=== PATIENT | male | born 1980 | race Caucasian/White ===

== ENCOUNTER 2022-08-04 13:14 | Emergency (ER) | payer BC, MEDICAID, OTHER ==
[2022-08-04 13:30] VITALS: BP 119/83; PULSE 85
[2022-08-04] MEDS ORDERED: Acetaminophen/HYDROcodone 325-10 MG Tab PO ONE (13:54)
[2022-08-04] MEDS ORDERED: Clindamycin HCl 150 MG Cap PO ONE (13:54)
== END 2022-08-04 14:10 | disposition home or self-care (01) ==
LOC: KA.ED 13:14
DX: K02.9 Dental caries, unspecified (principal); Z88.0 Allergy status to penicillin
CPT/HCPCS: 99282; 99283; A9270-GY